=== PATIENT | female | born 1995 | race Caucasian/White ===

== ENCOUNTER 2017-02-21 14:35 | Emergency (ER) | payer OTHER ==
[2017-02-21 14:41] VITALS: BP 100/72; PULSE 83; RESP 18; TEMP 97.7; O2SAT 99
--- NOTE | 2017-02-21 16:09 | UCPHY ---
H & P Time Seen by Provider: 02/21/17 15:51 Patient Type: New HPI/ROS: This patient has cough associated with a slightly hoarse voice. Her symptoms came on over the past few days that she reports increasing frequency of the cough. She notes low-grade subjective fevers associated with the symptoms and at times feels a slight wheeze feeling in her chest. No other associated symptoms. No exacerbating factors. ROS: No high fevers chills or fatigue. HEENT: Mild nasal congestion. No facial pain. No ear pain. Mild throat pain still tolerating good p.o. intake. Pulmonary: No pleuritic pain. Cough is dry. No hemoptysis. Cardiovascular: No lightheadedness. No leg swelling or pain. GI: No vomiting. 7 point ROS is otherwise negative. Past Medical/Surgical History: Otherwise healthy Smoking Status: Never smoked Physical Exam: Physical Exam Vital signs are normal. General: No acute distress HEENT: Nose: Clear discharge bilaterally. No sinus tenderness to percussion. Ears: External canals and tympanic membranes are clear with no erythema or abnormal findings bilaterally. Oropharynx: No erythema or exudates. Mild dysphonia. She has a harsh cough with a hint of barking quality to it. No stridor No drooling Eyes: Pupils equal and react to light. Extraocular motions are intact. Lungs: Minimal expiratory wheeze. No rales or rhonchi. No increased work of breathing. Cardiac: Regular rate and rhythm with no murmur gallop or rub Skin: No rash or pallor. Neuro: Alert with no focal deficits noted. Initial differential diagnosis: Laryngitis with viral bronchitis versus atypical bacterial bronchitis such as mycoplasma or pertussis. Constitutional: Initial Vital Signs Temperature (C) 36.5 C 02/21/17 14:37 Heart Rate 83 02/21/17 14:37 Respiratory Rate 18 02/21/17 14:37 Blood Pressure 100/72 02/21/17 14:37 O2 Sat (%) 99 02/21/17 14:37 O2 Delivery Mode Room Air Allergies/Adverse Reactions: No Known Allergies Allergy (Unverified 02/21/17 14:37) Home Medications: Medication Instructions Recorded Albuterol Hfa Anes Only [Proair 2 puffs IH Q4 PRN #1 mdi 02/21/17 Hfa Icu (*)] Azithromycin [Zithromax] 250 mg PO DAILY #6 tab 02/21/17 Fluticasone Hfa 220 Mcg [Flovent 2 puffs IH DAILY #1 mdi 02/21/17 220 MCG Hfa MDI (*)] Levothyroxine 02/21/17 MDM/Departure - Depart Disposition: Home, Routine, Self-Care Clinical Impression: Laryngitis Condition: Good Instructions: Acute Bronchitis (ED) Additional Instructions: Diagnosis: 1. Acute bronchitis 2. Laryngitis Plan: Humidifier Albuterol inhaler with spacer for cough, wheeze or shortness of breath Flovent steroid inhaler Zithromax antibiotic Return for any significant worsening despite the treatment plan Stand Alone Forms: School Excuse Prescriptions: Albuterol Hfa Anes Only [Proair Hfa Icu (*)] 2 puffs IH Q4 PRN #1 mdi PRN Reason: Wheezing Azithromycin [Zithromax] 250 mg PO DAILY #6 tab Fluticasone Hfa 220 Mcg [Flovent 220 MCG Hfa MDI (*)] 2 puffs IH DAILY #1 mdi Referrals: NONE *PRIMARY CARE P,. [Primary Care Provider] - As per Instructions - PQRS PQRS Measurement: NA
== END 2017-02-21 16:22 | disposition home or self-care (01) ==
LOC: CED 14:35
DX: J04.0 Acute laryngitis (principal); J20.9 Acute bronchitis, unspecified
CPT/HCPCS: G0463-PO